=== PATIENT | female | born 1975 | race Caucasian/White ===

== ENCOUNTER 2018-03-30 13:12 | Emergency (ER) | payer OTHER | END 2018-03-30 14:16 | disposition home or self-care (01) | LOC: E/R 13:12 | DX: E13.621 Other specified diabetes mellitus with foot ulcer (principal); L97.419 Non-pressure chronic ulcer of right heel and midfoot with unspecified severity; M79.671 Pain in right foot | CPT/HCPCS: 99284; Z7502 ==

== ENCOUNTER 2019-02-11 00:55 | Inpatient (IN) | payer OTHER ==
[2019-02-11] MEDS: ASPIRIN 81 MG TAB PO (01:21)
[2019-02-11] MEDS: ENALAPRILAT 1.25 MG INJ IV (01:21)
[2019-02-11] MEDS: FUROSEMIDE 40 MG INJ IV ×3 (01:22→22:10)
[2019-02-11 01:23] LABS: ADD MAN DIFF? NO
[2019-02-11 01:26] LABS: BASOPHIL # 0.1 10^3/ul (0.0-0.1); BASOPHILS % 0.6 % (0.0-2.0); EOSINOPHILS # 0.3 10^3/ul (0.0-0.5); EOSINOPHILS % 2.3 % (0.0-7.0); HEMATOCRIT 36.1 % (37.0-47.0); HEMOGLOBIN 11.2 g/dl (12.0-16.0); LYMPHOCYTES # 1.6 10^3/ul (0.8-2.9); LYMPHOCYTES % 13.1 % (15.0-51.0); MEAN CORPUSCULAR HEMOGLOBIN 23.5 pg (29.0-33.0); MEAN CORPUSCULAR VOLUME 75.7 fl (82.0-101.0); MEAN PLATELET VOLUME 10.5 fl (7.4-10.4); MONOCYTE # 0.4 10^3/ul (0.3-0.9); MONOCYTES % 3.6 % (0.0-11.0); NEUTROPHIL # 9.6 10^3/ul (1.6-7.5); NEUTROPHILS % 79.9 % (39.0-77.0); PLATELET COUNT 361 10^3/UL (140-415); RED BLOOD COUNT 4.77 10^6/ul (4.20-5.40); RED CELL DISTRIBUTION WIDTH 19.8 % (11.5-14.5)
[2019-02-11 01:53] LABS: ALANINE AMINOTRANSFERASE 12 IU/L (13-69); ALBUMIN 3.6 g/dl (3.3-4.9); ALKALINE PHOSPHATASE 120 IU/L (42-121); ANION GAP 12 (5-13); ASPARTATE AMINO TRANSFERASE 20 IU/L (15-46); BILIRUBIN,INDIRECT 0.2 mg/dl (0-1.1); BILIRUBIN,TOTAL 0.2 mg/dl (0.2-1.3); BLOOD UREA NITROGEN 58 mg/dl (7-20); CALCIUM 8.3 mg/dl (8.4-10.2); CARBON DIOXIDE 17 mmol/L (21-31); CHLORIDE 114 mmol/L (97-110); Estimated GFR 8 mL/min (>60); GLUCOSE 276 mg/dl (70-220); LIPASE 213 U/L (23-300); POTASSIUM 5.2 mmol/L (3.5-5.1); SODIUM 143 mmol/L (135-144); TOTAL PROTEIN 7.6 g/dl (6.1-8.1)
[2019-02-11 02:05] LABS: TROPONIN-I 0.055 ng/ml (0.000-0.120)
[2019-02-11] MEDS: ALBUTEROL 0.5% (NEB) 2.5 MG/0.5 ML AMP INH (02:08)
[2019-02-11 02:19] LABS: B-TYPE NATRIURETIC PEPTIDE 74800 PG/ML (0-125)
[2019-02-11 03:14] LABS: ADD UMIC YES; UR ASCORBIC ACID NEGATIVE (NEGATIVE); UR BILIRUBIN (Dip) NEGATIVE (NEGATIVE); UR BLOOD (Dip) 1+ mg/dL (NEGATIVE); UR CLARITY SLIGHTLY CLOUDY (CLEAR); UR COLOR STRAW (YELLOW); UR GLUCOSE (Dip) 3+ mg/dL (NEGATIVE); UR KETONES (Dip) NEGATIVE (NEGATIVE); UR LEUKOCYTE ESTERASE (Dip) 1+ Leu/ul (NEGATIVE); UR NITRITE (Dip) NEGATIVE (NEGATIVE); UR RBC 2 /HPF (0-5); UR SPECIFIC GRAVITY (Dip) 1.009 (1.003-1.030); UR TOTAL PROTEIN (Dip) 3+ mg/dl (NEGATIVE); UR UROBILINOGEN (Dip) NEGATIVE (NEGATIVE); UR WBC 152 /HPF (0-5)
[2019-02-11 04:19] LABS: PARTIAL THROMBOPLASTIN TIME 32.6 Sec (23.0-35.0)
[2019-02-11 04:40] LABS: INR 0.99; PROTIME 13.2 Sec (11.9-14.9)
[2019-02-11] MEDS: CEFTRIAXONE 1 GM/50 ML (PMX) 50 ML IVPB (05:46)
[2019-02-11] MEDS: CITRIC ACID/NA CITRATE 30 ML CUP PO ×3 (09:20→22:12)
[2019-02-11] MEDS: AMLODIPINE 5 MG TAB PO (10:22)
[2019-02-11] MEDS: METOPROLOL 50 MG TAB PO ×2 (10:23→22:11)
[2019-02-11] MEDS ORDERED: DEXTROSE 50% 50 ML SYRINGE IV ×2 (10:30)
[2019-02-11] MEDS ORDERED: GLUCAGON 1 MG INJ IM (10:30)
[2019-02-11] MEDS ORDERED: GLUCOSE GEL 15 GRAM TUBE PO ×2 (10:30)
[2019-02-11] MEDS ORDERED: GLUCOSE GEL 15 GRAM TUBE BUCCAL (10:30)
[2019-02-11] MEDS: INSULIN ASPART [NOVOLOG] 3 ML PEN SC ×3 (11:49→20:41)
[2019-02-11] MEDS ORDERED: GLIMEPIRIDE 4 MG TAB PO (11:50)
[2019-02-11 13:26] LABS: SODIUM,URINE RANDOM 113 mmol/L (30-90)
[2019-02-11 13:52] LABS: CREATININE,URINE RANDOM 25.68 mg/dl (20-320)
[2019-02-11] MEDS: ATORVASTATIN 10 MG TAB PO (22:11)
[2019-02-12 07:30] LABS: CREATINE KINASE 198 IU/L (23-200)
[2019-02-12 07:30] LABS: URIC ACID 7.6 mg/dl (3.1-7.9)
[2019-02-12] MEDS: INSULIN ASPART [NOVOLOG] 3 ML PEN SC ×2 (07:43→11:46)
[2019-02-12] MEDS: CITRIC ACID/NA CITRATE 30 ML CUP PO ×2 (08:04→12:30)
[2019-02-12] MEDS: AMLODIPINE 5 MG TAB PO (08:05)
[2019-02-12] MEDS: FUROSEMIDE 40 MG INJ IV (08:05)
[2019-02-12] MEDS: METOPROLOL 50 MG TAB PO (08:07)
[2019-02-12] MEDS ORDERED: NIFEdipine (XL) 30 MG TAB PO (09:00)
[2019-02-12 10:48] LABS: IRON 15 ug/dl (35-150)
[2019-02-12 10:54] LABS: ALANINE AMINOTRANSFERASE 13 IU/L (13-69); ALBUMIN 2.8 g/dl (3.3-4.9); ALKALINE PHOSPHATASE 75 IU/L (42-121); ANION GAP 11 (5-13); ASPARTATE AMINO TRANSFERASE 16 IU/L (15-46); BILIRUBIN,INDIRECT 0.2 mg/dl (0-1.1); BILIRUBIN,TOTAL 0.2 mg/dl (0.2-1.3); BLOOD UREA NITROGEN 60 mg/dl (7-20); CALCIUM 7.8 mg/dl (8.4-10.2); CARBON DIOXIDE 20 mmol/L (21-31); CHLORIDE 111 mmol/L (97-110); CREATININE 5.97 mg/dl (0.44-1.00); Estimated GFR 8 mL/min (>60); GLUCOSE 135 mg/dl (70-220); POTASSIUM 4.9 mmol/L (3.5-5.1); SODIUM 142 mmol/L (135-144); TOTAL PROTEIN 6.3 g/dl (6.1-8.1)
[2019-02-12 10:58] LABS: % IRON SATURATION 5 % SAT (22-52); TOTAL IRON BINDING CAPACITY 303 ug/dl (241-421)
[2019-02-12 13:45] LABS: PARATHYROID HORMONE INTACT 425.3 pg/ml (7.5-53.5)
[2019-02-13] MEDS ORDERED: AMLODIPINE 10 MG TAB PO (09:00)
== END 2019-02-12 15:02 | disposition home or self-care (01) | DRG 291 ==
LOC: E/R 00:55 → TEL 02:32
DX: I13.0 Hypertensive heart and chronic kidney disease with heart failure and stage 1 through stage 4 chronic kidney disease, or unspecified chronic kidney disease (principal); N17.0 Acute kidney failure with tubular necrosis; I50.30 Unspecified diastolic (congestive) heart failure; N18.4 Chronic kidney disease, stage 4 (severe); I16.1 Hypertensive emergency; E87.2 Acidosis; E87.5 Hyperkalemia; E11.21 Type 2 diabetes mellitus with diabetic nephropathy; Z91.19 Patient's noncompliance with other medical treatment and regimen; E11.65 Type 2 diabetes mellitus with hyperglycemia
CPT/HCPCS: 36415; 71045; 76775; 80053; 81001; 81003; 82306; 82550; 82570; 82728; 82962; 83540; 83690; 83880; 83970; 84300; 84484; 84560; 85025; 85610; 85730; 89190; 93005; 93306; 94644; 94660; 96374; 96375; 99285-25

== ENCOUNTER 2019-02-15 07:26 | Observation (INO) | payer OTHER ==
[2019-02-15 08:43] LABS: ADD MAN DIFF? NO
[2019-02-15 08:49] LABS: ABNORMAL IP MESSAGE 1; BASOPHILS % 0.4 % (0.0-2.0); EOSINOPHILS # 0.1 10^3/ul (0.0-0.5); EOSINOPHILS % 1.7 % (0.0-7.0); HEMATOCRIT 32.3 % (37.0-47.0); HEMOGLOBIN 9.9 g/dl (12.0-16.0); LYMPHOCYTES # 0.6 10^3/ul (0.8-2.9); LYMPHOCYTES % 7.1 % (15.0-51.0); MEAN CORPUSCULAR HEMOGLOBIN 23.4 pg (29.0-33.0); MEAN CORPUSCULAR HGB CONC 30.7 g/dl (32.0-37.0); MEAN CORPUSCULAR VOLUME 76.4 fl (82.0-101.0); MONOCYTE # 0.5 10^3/ul (0.3-0.9); MONOCYTES % 5.4 % (0.0-11.0); NEUTROPHIL # 7.1 10^3/ul (1.6-7.5); PLATELET COUNT 362 10^3/UL (140-415); RED BLOOD COUNT 4.23 10^6/ul (4.20-5.40)
[2019-02-15 08:49] LABS: WHITE BLOOD COUNT 8.3 10^3/ul (4.8-10.8)
[2019-02-15 08:50] LABS: POSITIVE DIFF @See below
[2019-02-15] MEDS: OCTREOTIDE 50 MCG INJ SC (08:51)
[2019-02-15 09:21] LABS: ANION GAP 13 (5-13); BLOOD UREA NITROGEN 61 mg/dl (7-20); CALCIUM 7.1 mg/dl (8.4-10.2); CARBON DIOXIDE 21 mmol/L (21-31); CHLORIDE 107 mmol/L (97-110); CREATININE 5.89 mg/dl (0.44-1.00); Estimated GFR 8 mL/min (>60); POTASSIUM 4.2 mmol/L (3.5-5.1); SODIUM 141 mmol/L (135-144)
[2019-02-15 09:28] LABS: GLUCOSE 47 mg/dl (70-220)
[2019-02-15 09:32] LABS: TROPONIN-I 0.053 ng/ml (0.000-0.120)
[2019-02-15] MEDS: DEXTROSE 50% 50 ML SYRINGE IV (09:55)
[2019-02-15] MEDS: DEXTROSE 5%-0.9% NACL 1,000 ML IV (09:56)
[2019-02-15] MEDS ORDERED: ACETAMINOPHEN 325 MG TAB PO (12:30)
[2019-02-15] MEDS ORDERED: ONDANSETRON 4 MG INJ IV (12:30)
[2019-02-15] MEDS ORDERED: CITRIC ACID/NA CIT (1 MEQ/ML POSYG) PO (13:00)
[2019-02-15] MEDS: FUROSEMIDE 40 MG TAB PO ×2 (13:55→18:41)
[2019-02-15] MEDS: METOPROLOL 50 MG TAB PO (13:55)
[2019-02-15] MEDS ORDERED: DEXTROSE 50% 50 ML SYRINGE IV ×2 (14:30)
[2019-02-15] MEDS ORDERED: GLUCOSE GEL 15 GRAM TUBE PO ×2 (14:30)
[2019-02-15] MEDS ORDERED: GLUCAGON 1 MG INJ IM (14:30)
[2019-02-15] MEDS: DEXTROSE 5%-0.45% NACL 1,000 ML IV (14:30)
[2019-02-15] MEDS ORDERED: GLUCOSE GEL 15 GRAM TUBE BUCCAL (14:30)
[2019-02-15] MEDS: CITRIC ACID/NA CITRATE 30 ML CUP PO (16:14)
[2019-02-15] MEDS ORDERED: INSULIN ASPART [NOVOLOG] 3 ML PEN SC (18:00)
[2019-02-15] MEDS ORDERED: AMLODIPINE 5 MG TAB PO (21:00)
[2019-02-15] MEDS ORDERED: ATORVASTATIN 20 MG TAB PO (21:00)
== END 2019-02-15 21:05 | disposition left against medical advice (07) ==
LOC: E/R 07:26 → 6WM 12:46
PROVIDERS: Internal Medicine
DX: E11.649 Type 2 diabetes mellitus with hypoglycemia without coma (principal); Z79.4 Long term (current) use of insulin; I13.0 Hypertensive heart and chronic kidney disease with heart failure and stage 1 through stage 4 chronic kidney disease, or unspecified chronic kidney disease; E11.22 Type 2 diabetes mellitus with diabetic chronic kidney disease; N18.4 Chronic kidney disease, stage 4 (severe); I50.9 Heart failure, unspecified
CPT/HCPCS: 36415; 71045; 80048; 82962; 84484; 85025; 93005; 96372; 96374; 99217; 99285-25

== ENCOUNTER 2019-03-05 03:13 | Emergency (ER) | payer OTHER | END 2019-03-05 06:03 | disposition home or self-care (01) | LOC: E/R 03:13 | DX: E11.649 Type 2 diabetes mellitus with hypoglycemia without coma (principal); I10 Essential (primary) hypertension; Z79.4 Long term (current) use of insulin | CPT/HCPCS: 82962; 99282 ==

== ENCOUNTER 2019-03-22 00:34 | Inpatient (IN) | payer OTHER ==
[2019-03-22] MEDS ORDERED: NITROGLYCERIN 50 MG/D5W (PMX) 250 ML (00:49)
[2019-03-22] MEDS ORDERED: NITROGLYCERIN (SL) 0.4 MG TAB (00:50)
[2019-03-22 00:58] LABS: ADD MAN DIFF? NO
[2019-03-22] MEDS: NITROGLYCERIN (SL) 0.4 MG TAB SL (00:58)
[2019-03-22] MEDS: NITROGLYCERIN 50 MG/D5W (PMX) 250 ML IV (01:00)
[2019-03-22] MEDS: morphine 4 MG/ML VIAL IV (01:02)
[2019-03-22 01:04] LABS: ABNORMAL IP MESSAGE 1; BASOPHILS % 0.4 % (0.0-2.0); EOSINOPHILS # 0.3 10^3/ul (0.0-0.5); EOSINOPHILS % 2.7 % (0.0-7.0); HEMATOCRIT 30.3 % (37.0-47.0); HEMOGLOBIN 8.6 g/dl (12.0-16.0); LYMPHOCYTES # 0.8 10^3/ul (0.8-2.9); LYMPHOCYTES % 8.7 % (15.0-51.0); MEAN CORPUSCULAR HEMOGLOBIN 23.1 pg (29.0-33.0); MEAN CORPUSCULAR HGB CONC 28.4 g/dl (32.0-37.0); MEAN CORPUSCULAR VOLUME 81.5 fl (82.0-101.0); MONOCYTE # 0.6 10^3/ul (0.3-0.9); MONOCYTES % 6.4 % (0.0-11.0); NEUTROPHIL # 7.8 10^3/ul (1.6-7.5); NEUTROPHILS % 81.4 % (39.0-77.0); NUCLEATED RED BLOOD CELLS% 0.3 /100WBC (0.0-0.0); PLATELET COUNT 418 10^3/UL (140-415); RED BLOOD COUNT 3.72 10^6/ul (4.20-5.40); RED CELL DISTRIBUTION WIDTH 17.6 % (11.5-14.5)
[2019-03-22 01:04] LABS: WHITE BLOOD COUNT 9.6 10^3/ul (4.8-10.8)
[2019-03-22 01:18] LABS: POSITIVE DIFF @See below
[2019-03-22 01:21] LABS: ALANINE AMINOTRANSFERASE 19 IU/L (13-69); ALBUMIN 3.3 g/dl (3.3-4.9); ALBUMIN/GLOBULIN RATIO 0.84; ALKALINE PHOSPHATASE 102 IU/L (42-121); ANION GAP 9 (5-13); ASPARTATE AMINO TRANSFERASE 20 IU/L (15-46); BILIRUBIN,INDIRECT 0.2 mg/dl (0-1.1); BILIRUBIN,TOTAL 0.2 mg/dl (0.2-1.3); BLOOD UREA NITROGEN 68 mg/dl (7-20); CALCIUM 7.8 mg/dl (8.4-10.2); CARBON DIOXIDE 24 mmol/L (21-31); CHLORIDE 108 mmol/L (97-110); CREATININE 6.47 mg/dl (0.44-1.00); Estimated GFR 7 mL/min (>60); GLUCOSE 88 mg/dl (70-220); LIPASE 176 U/L (23-300); POTASSIUM 5.3 mmol/L (3.5-5.1); SODIUM 141 mmol/L (135-144); TOTAL PROTEIN 7.2 g/dl (6.1-8.1)
[2019-03-22 01:23] LABS: INR 1.07; PT RATIO 1.1
[2019-03-22 01:24] LABS: PARTIAL THROMBOPLASTIN TIME 32.1 Sec (23.0-35.0)
[2019-03-22 01:32] LABS: TROPONIN-I 0.044 ng/ml (0.000-0.120)
[2019-03-22 02:15] LABS: AADO2 Arterial 597.6 mmHg (7.0-24.0); Arterial Base Excess -3.6 mmol/L (-3.0-3); Arterial Blood Gas Oxygen Sat 92.5 mmHG (95.0-98.0); Arterial COHb 0.1 % (0.0-3.0); Arterial Fraction of Oxyhgb 91.9 % (93.0-99.0); Arterial HCO3 22.4 mmol/L (22.0-26.0); Arterial MetHb 0.5 % (0.0-1.5); Arterial pCO2 44.6 mmhg (35-45); Blood Gas IEPAP 15/5; Blood Gas PS 10; MODE MASK - BIPAP; Site Right Brachial
[2019-03-22 02:38] LABS: B-TYPE NATRIURETIC PEPTIDE 75300 PG/ML (0-125)
[2019-03-22] MEDS: LABETALOL HCL 20MG INJ IV (03:29)
[2019-03-22] MEDS: FUROSEMIDE 40 MG INJ IV ×2 (05:10→08:30)
[2019-03-22] MEDS ORDERED: ACETAMINOPHEN 325 MG TAB PO (06:00)
[2019-03-22] MEDS ORDERED: ONDANSETRON 4 MG INJ IV ×2 (06:00→08:30)
[2019-03-22 07:17] LABS: ADD MAN DIFF? NO
[2019-03-22 07:20] LABS: WHITE BLOOD COUNT 8.5 10^3/ul (4.8-10.8)
[2019-03-22 07:20] LABS: ABNORMAL IP MESSAGE 1; BASOPHIL # 0.1 10^3/ul (0.0-0.1); BASOPHILS % 0.6 % (0.0-2.0); EOSINOPHILS # 0.1 10^3/ul (0.0-0.5); EOSINOPHILS % 1.4 % (0.0-7.0); HEMATOCRIT 27.8 % (37.0-47.0); HEMOGLOBIN 7.9 g/dl (12.0-16.0); LYMPHOCYTES # 0.7 10^3/ul (0.8-2.9); MEAN CORPUSCULAR HEMOGLOBIN 22.9 pg (29.0-33.0); MEAN CORPUSCULAR HGB CONC 28.4 g/dl (32.0-37.0); MEAN CORPUSCULAR VOLUME 80.6 fl (82.0-101.0); MEAN PLATELET VOLUME 9.5 fl (7.4-10.4); MONOCYTE # 0.6 10^3/ul (0.3-0.9); MONOCYTES % 6.9 % (0.0-11.0); NEUTROPHILS % 82.6 % (39.0-77.0); NUCLEATED RED BLOOD CELLS% 0.2 /100WBC (0.0-0.0); PLATELET COUNT 352 10^3/UL (140-415); RED BLOOD COUNT 3.45 10^6/ul (4.20-5.40); RED CELL DISTRIBUTION WIDTH 17.7 % (11.5-14.5)
[2019-03-22 07:38] LABS: POSITIVE DIFF @See below
[2019-03-22 07:46] LABS: ALBUMIN/GLOBULIN RATIO 0.86; ANION GAP 8 (5-13); BILIRUBIN,TOTAL 0.2 mg/dl (0.2-1.3); BLOOD UREA NITROGEN 68 mg/dl (7-20); CARBON DIOXIDE 24 mmol/L (21-31); CHLORIDE 109 mmol/L (97-110); CREATININE 6.78 mg/dl (0.44-1.00); Estimated GFR 7 mL/min (>60); GLUCOSE 80 mg/dl (70-220); POTASSIUM 5.6 mmol/L (3.5-5.1); SODIUM 141 mmol/L (135-144)
[2019-03-22 07:47] LABS: ALANINE AMINOTRANSFERASE 18 IU/L (13-69); ALBUMIN 3.1 g/dl (3.3-4.9); ALKALINE PHOSPHATASE 86 IU/L (42-121); ASPARTATE AMINO TRANSFERASE 18 IU/L (15-46); BILIRUBIN,INDIRECT 0.2 mg/dl (0-1.1); CALCIUM 7.6 mg/dl (8.4-10.2); TOTAL PROTEIN 6.7 g/dl (6.1-8.1)
[2019-03-22 08:14] LABS: B-TYPE NATRIURETIC PEPTIDE 77800 PG/ML (0-125)
[2019-03-22 08:34] LABS: TROPONIN-I 0.057 ng/ml (0.000-0.120)
[2019-03-22] MEDS ORDERED: EMPAGLIFLOZIN 12.5 MG PO (10:00)
[2019-03-22] MEDS ORDERED: ZOLPIDEM 5 MG TAB PO (10:00)
[2019-03-22] MEDS: METOPROLOL 50 MG TAB PO (10:11)
[2019-03-22] MEDS: NA POLYST SULFON 15 GM/60 ML BTL PO (10:11)
[2019-03-22] MEDS: AMLODIPINE 5 MG TAB PO (10:12)
[2019-03-22] MEDS ORDERED: DEXTROSE 50% 50 ML SYRINGE IV (10:30)
[2019-03-22] MEDS ORDERED: GLUCOSE GEL 15 GRAM TUBE PO ×2 (10:30)
[2019-03-22] MEDS ORDERED: GLUCOSE GEL 15 GRAM TUBE BUCCAL (10:30)
[2019-03-22] MEDS ORDERED: GLUCAGON 1 MG INJ IM (10:30)
[2019-03-22] MEDS: BUMETANIDE 6 MG in DEXTROSE 5% 36 ML IV ×2 (11:19→18:26)
[2019-03-22] MEDS ORDERED: NON-FORMULARY/PATIENT OWN MED (Insulin Lispro (Humalog Kwikpen U-100) 8 UNIT) SQ (11:30)
[2019-03-22] MEDS: NIFEdipine (XL) 60 MG TAB PO (13:21)
[2019-03-22] MEDS: hydrALAzine 20 MG INJ IV (16:38)
[2019-03-22] MEDS: INSULIN ASPART [NOVOLOG] 3 ML PEN SC ×3 (16:50→21:00)
[2019-03-22] MEDS ORDERED: LORAZEPAM 1 MG TAB PO (17:30)
[2019-03-22] MEDS ORDERED: INSULIN GLARGINE [LANTus] (100 UNITS/ML) SYG SC (21:00)
[2019-03-22] MEDS: INSULIN GLARGINE [LANTus] (100 UNITS/ML) SYG SC (21:00)
[2019-03-22] MEDS: ACETAMINOPHEN 500 MG TAB PO (21:11)
[2019-03-22] MEDS: ATORVASTATIN 20 MG TAB PO (21:12)
[2019-03-23] MEDS: BUMETANIDE 12 MG in DEXTROSE 5% 72 ML IV ×2 (00:48→13:51)
[2019-03-23 00:57] LABS: AADO2 Arterial 180.2 mmHg (7.0-24.0); Allen Test ACCEPTAB; Arterial Base Excess -6.9 mmol/L (-3.0-3); Arterial Blood Gas Oxygen Sat 90.8 mmHG (95.0-98.0); Arterial COHb 0.1 % (0.0-3.0); Arterial Fraction of Oxyhgb 90.3 % (93.0-99.0); Arterial HCO3 18.6 mmol/L (22.0-26.0); Arterial MetHb 0.5 % (0.0-1.5); Arterial pCO2 37.1 mmhg (35-45); Blood Gas IEPAP 15/5; Blood Gas PS 10; MODE MASK - BIPAP; Site Left Radial
[2019-03-23] MEDS: ACCU-CHEK XX (02:00)
[2019-03-23 06:21] LABS: ADD MAN DIFF? NO
[2019-03-23 06:28] LABS: WHITE BLOOD COUNT 5.5 10^3/ul (4.8-10.8)
[2019-03-23 06:28] LABS: ABNORMAL IP MESSAGE 1; BASOPHILS % 0.4 % (0.0-2.0); EOSINOPHILS % 0.2 % (0.0-7.0); HEMATOCRIT 26.9 % (37.0-47.0); HEMOGLOBIN 7.6 g/dl (12.0-16.0); LYMPHOCYTES # 0.7 10^3/ul (0.8-2.9); LYMPHOCYTES % 11.8 % (15.0-51.0); MEAN CORPUSCULAR HGB CONC 28.3 g/dl (32.0-37.0); MEAN CORPUSCULAR VOLUME 81.3 fl (82.0-101.0); MONOCYTE # 0.4 10^3/ul (0.3-0.9); MONOCYTES % 6.6 % (0.0-11.0); NEUTROPHIL # 4.4 10^3/ul (1.6-7.5); NEUTROPHILS % 80.6 % (39.0-77.0); NUCLEATED RED BLOOD CELLS% 0.5 /100WBC (0.0-0.0); PLATELET COUNT 329 10^3/UL (140-415); RED BLOOD COUNT 3.31 10^6/ul (4.20-5.40); RED CELL DISTRIBUTION WIDTH 17.4 % (11.5-14.5)
[2019-03-23 06:46] LABS: POSITIVE DIFF @See below
[2019-03-23 06:47] LABS: CHOL/HDL RATIO 1.8 RATIO; HDL CHOLESTEROL 48 mg/dl (34-88); LDL CHOLESTEROL,CALCULATED 29 mg/dl; TRIGLYCERIDES 61 mg/dl (0-149)
[2019-03-23 06:47] LABS: CHOLESTEROL 89 mg/dl (100-200)
[2019-03-23 06:54] LABS: HEMOGLOBIN A1C 7.7 % (0-5.9)
[2019-03-23 07:09] LABS: ANION GAP 8 (5-13); BLOOD UREA NITROGEN 76 mg/dl (7-20); CALCIUM 7.3 mg/dl (8.4-10.2); CARBON DIOXIDE 22 mmol/L (21-31); CHLORIDE 108 mmol/L (97-110); CREATININE 6.98 mg/dl (0.44-1.00); Estimated GFR 6 mL/min (>60); GLUCOSE 92 mg/dl (70-220); POTASSIUM 5.6 mmol/L (3.5-5.1); SODIUM 138 mmol/L (135-144)
[2019-03-23] MEDS: INSULIN ASPART [NOVOLOG] 3 ML PEN SC ×4 (07:35→21:00)
[2019-03-23] MEDS: NIFEdipine (XL) 60 MG TAB PO (08:09)
[2019-03-23] MEDS ORDERED: HEPARIN 1000 UNITS/ML 10 ML INJ CATHETER (12:00)
[2019-03-23] MEDS ORDERED: SODIUM CHLORIDE 0.9% 1L BAG IV (12:00)
[2019-03-23] MEDS: ATORVASTATIN 20 MG TAB PO (21:57)
[2019-03-23] MEDS: INSULIN GLARGINE [LANTus] (100 UNITS/ML) SYG SC (22:06)
[2019-03-24] MEDS: HEPARIN 1000 UNITS/ML 10 ML INJ HE (01:49)
[2019-03-24] MEDS: ACCU-CHEK XX (01:57)
[2019-03-24] MEDS: BUMETANIDE 12 MG in DEXTROSE 5% 72 ML IV (02:13)
[2019-03-24] MEDS: morphine 2 MG INJ IV (03:48)
[2019-03-24 06:15] LABS: HAAIG REFLEX REFLEX FILED
[2019-03-24 07:14] LABS: HEPATITIS B SURFACE ANTIGEN NEGATIVE (NEGATIVE)
[2019-03-24 07:32] LABS: HEPATITIS B CORE ANTIBODY NEGATIVE (NEGATIVE); HEPATITIS C VIRAL ANTIBODY NEGATIVE (NEGATIVE); HIV 1&2 ANTIBODY NEGATIVE (NEGATIVE)
[2019-03-24] MEDS: INSULIN ASPART [NOVOLOG] 3 ML PEN SC ×4 (09:27→21:00)
[2019-03-24] MEDS: NIFEdipine (XL) 60 MG TAB PO (09:36)
[2019-03-24] MEDS: ALTEPLASE (CATHFLO) 2 MG INJ CATHETER (15:35)
[2019-03-24] MEDS: ATORVASTATIN 20 MG TAB PO (21:19)
[2019-03-24] MEDS: INSULIN GLARGINE [LANTus] (100 UNITS/ML) SYG SC (21:27)
[2019-03-25] MEDS: ACCU-CHEK XX (02:26)
[2019-03-25 06:23] LABS: ADD MAN DIFF? NO
[2019-03-25 06:33] LABS: WHITE BLOOD COUNT 6.7 10^3/ul (4.8-10.8)
[2019-03-25 06:33] LABS: ABNORMAL IP MESSAGE 1; BASOPHILS % 0.6 % (0.0-2.0); EOSINOPHILS # 0.2 10^3/ul (0.0-0.5); EOSINOPHILS % 2.7 % (0.0-7.0); HEMATOCRIT 26.4 % (37.0-47.0); HEMOGLOBIN 7.6 g/dl (12.0-16.0); LYMPHOCYTES # 0.6 10^3/ul (0.8-2.9); LYMPHOCYTES % 8.3 % (15.0-51.0); MEAN CORPUSCULAR HEMOGLOBIN 22.8 pg (29.0-33.0); MEAN CORPUSCULAR HGB CONC 28.8 g/dl (32.0-37.0); MEAN CORPUSCULAR VOLUME 79.3 fl (82.0-101.0); MEAN PLATELET VOLUME 10.4 fl (7.4-10.4); MONOCYTE # 0.6 10^3/ul (0.3-0.9); MONOCYTES % 8.2 % (0.0-11.0); NEUTROPHIL # 5.4 10^3/ul (1.6-7.5); NEUTROPHILS % 79.8 % (39.0-77.0); NUCLEATED RED BLOOD CELLS # 0.1 10^3/ul (0.0-0.0); NUCLEATED RED BLOOD CELLS% 1.3 /100WBC (0.0-0.0); PLATELET COUNT 334 10^3/UL (140-415); RED BLOOD COUNT 3.33 10^6/ul (4.20-5.40); RED CELL DISTRIBUTION WIDTH 17.3 % (11.5-14.5)
[2019-03-25 06:43] LABS: POSITIVE DIFF @See below
[2019-03-25 07:00] LABS: MAGNESIUM 2.1 mg/dl (1.7-2.5)
[2019-03-25 07:18] LABS: ANION GAP 12 (5-13); BLOOD UREA NITROGEN 68 mg/dl (7-20); CALCIUM 7.4 mg/dl (8.4-10.2); CARBON DIOXIDE 22 mmol/L (21-31); CHLORIDE 105 mmol/L (97-110); CREATININE 6.99 mg/dl (0.44-1.00); Estimated GFR 6 mL/min (>60); GLUCOSE 60 mg/dl (70-220); POTASSIUM 5.2 mmol/L (3.5-5.1); SODIUM 139 mmol/L (135-144)
[2019-03-25] MEDS: INSULIN ASPART [NOVOLOG] 3 ML PEN SC ×4 (07:55→21:00)
[2019-03-25] MEDS: NIFEdipine (XL) 30 MG TAB PO (09:00)
[2019-03-25 13:50] LABS: GLUCOSE 123 mg/dl (70-220)
[2019-03-25] MEDS: ALBUMIN HUMAN 25% 100 ML IV (16:25)
[2019-03-25] MEDS: HEPARIN 1000 UNITS/ML 10 ML INJ CATHETER (19:42)
[2019-03-25] MEDS: ATORVASTATIN 20 MG TAB PO (21:42)
[2019-03-25] MEDS: HEPARIN 5,000 UNIT/1 ML VIAL SC (21:52)
[2019-03-25] MEDS: INSULIN GLARGINE [LANTus] (100 UNITS/ML) SYG SC (21:53)
[2019-03-26] MEDS: ACCU-CHEK XX (01:40)
[2019-03-26 07:23] LABS: ADD MAN DIFF? NO
[2019-03-26 07:30] LABS: WHITE BLOOD COUNT 6.4 10^3/ul (4.8-10.8)
[2019-03-26 07:30] LABS: ABNORMAL IP MESSAGE 1; BASOPHILS % 0.5 % (0.0-2.0); EOSINOPHILS # 0.2 10^3/ul (0.0-0.5); EOSINOPHILS % 2.8 % (0.0-7.0); HEMOGLOBIN 7.5 g/dl (12.0-16.0); LYMPHOCYTES # 0.6 10^3/ul (0.8-2.9); LYMPHOCYTES % 8.7 % (15.0-51.0); MEAN CORPUSCULAR HEMOGLOBIN 22.5 pg (29.0-33.0); MEAN CORPUSCULAR HGB CONC 28.8 g/dl (32.0-37.0); MEAN CORPUSCULAR VOLUME 78.1 fl (82.0-101.0); MEAN PLATELET VOLUME 10.2 fl (7.4-10.4); MONOCYTE # 0.6 10^3/ul (0.3-0.9); NEUTROPHILS % 78.4 % (39.0-77.0); NUCLEATED RED BLOOD CELLS # 0.1 10^3/ul (0.0-0.0); NUCLEATED RED BLOOD CELLS% 1.3 /100WBC (0.0-0.0); PLATELET COUNT 310 10^3/UL (140-415); RED BLOOD COUNT 3.33 10^6/ul (4.20-5.40); RED CELL DISTRIBUTION WIDTH 17.2 % (11.5-14.5)
[2019-03-26 07:37] LABS: POSITIVE DIFF @See below
[2019-03-26] MEDS: INSULIN ASPART [NOVOLOG] 3 ML PEN SC ×5 (07:55→20:43)
[2019-03-26 07:57] LABS: ANION GAP 9 (5-13); BLOOD UREA NITROGEN 54 mg/dl (7-20); CALCIUM 7.5 mg/dl (8.4-10.2); CARBON DIOXIDE 26 mmol/L (21-31); CHLORIDE 103 mmol/L (97-110); CREATININE 5.51 mg/dl (0.44-1.00); Estimated GFR 8 mL/min (>60); POTASSIUM 4.5 mmol/L (3.5-5.1); SODIUM 138 mmol/L (135-144)
[2019-03-26 08:03] LABS: GLUCOSE 44 mg/dl (70-220)
[2019-03-26] MEDS: DEXTROSE 50% 50 ML SYRINGE IV ×2 (08:08→12:05)
[2019-03-26 08:14] LABS: PHOSPHORUS 7.8 mg/dl (2.5-4.9)
[2019-03-26 08:15] LABS: IRON < 10 ug/dl (35-150)
[2019-03-26] MEDS: HEPARIN 5,000 UNIT/1 ML VIAL SC ×2 (08:19→20:54)
[2019-03-26 08:25] LABS: TOTAL IRON BINDING CAPACITY 293 ug/dl (241-421)
[2019-03-26 09:21] LABS: FOLATE 9.2 ng/ml (2.8-20.0)
[2019-03-26] MEDS: REGADENOSON 0.4 MG/5 ML SYG (14:32)
[2019-03-26] MEDS: DEXTROSE 5%-0.9% NACL 1,000 ML IV (15:43)
[2019-03-26] MEDS: SOD FERRIC GLUC COMPLX 125 MG in SOD CHLORIDE 0.9% 100 ML IVPB (15:43)
[2019-03-26] MEDS: ATORVASTATIN 20 MG TAB PO (20:40)
[2019-03-26] MEDS: INSULIN GLARGINE [LANTus] (100 UNITS/ML) SYG SC (21:00)
[2019-03-26] MEDS: ACETAMINOPHEN 500 MG TAB PO (23:34)
[2019-03-27] MEDS ORDERED: ACCU-CHEK XX (02:00)
[2019-03-27] MEDS: ACCU-CHEK XX (02:00)
[2019-03-27 07:06] LABS: ADD MAN DIFF? NO
[2019-03-27 07:11] LABS: ABNORMAL IP MESSAGE 1; BASOPHILS % 0.3 % (0.0-2.0); EOSINOPHILS # 0.2 10^3/ul (0.0-0.5); EOSINOPHILS % 2.8 % (0.0-7.0); HEMATOCRIT 26.8 % (37.0-47.0); HEMOGLOBIN 7.6 g/dl (12.0-16.0); LYMPHOCYTES # 0.6 10^3/ul (0.8-2.9); LYMPHOCYTES % 9.2 % (15.0-51.0); MEAN CORPUSCULAR HEMOGLOBIN 22.6 pg (29.0-33.0); MEAN CORPUSCULAR HGB CONC 28.4 g/dl (32.0-37.0); MEAN CORPUSCULAR VOLUME 79.5 fl (82.0-101.0); MEAN PLATELET VOLUME 9.8 fl (7.4-10.4); MONOCYTE # 0.5 10^3/ul (0.3-0.9); MONOCYTES % 8.4 % (0.0-11.0); NEUTROPHIL # 5.1 10^3/ul (1.6-7.5); NEUTROPHILS % 78.5 % (39.0-77.0); NUCLEATED RED BLOOD CELLS # 0.2 10^3/ul (0.0-0.0); NUCLEATED RED BLOOD CELLS% 2.6 /100WBC (0.0-0.0); PLATELET COUNT 291 10^3/UL (140-415); RED BLOOD COUNT 3.37 10^6/ul (4.20-5.40); RED CELL DISTRIBUTION WIDTH 17.2 % (11.5-14.5)
[2019-03-27 07:11] LABS: WHITE BLOOD COUNT 6.4 10^3/ul (4.8-10.8)
[2019-03-27 07:19] LABS: POSITIVE DIFF @See below
[2019-03-27 07:30] LABS: INR 1.12; PARTIAL THROMBOPLASTIN TIME 34.6 Sec (23.0-35.0); PROTIME 14.5 Sec (11.9-14.9); PT RATIO 1.1
[2019-03-27 07:32] LABS: IRON 69 ug/dl (35-150)
[2019-03-27 07:33] LABS: ALANINE AMINOTRANSFERASE 22 IU/L (13-69); ALBUMIN/GLOBULIN RATIO 0.88; ALKALINE PHOSPHATASE 97 IU/L (42-121); ANION GAP 10 (5-13); ASPARTATE AMINO TRANSFERASE 25 IU/L (15-46); BILIRUBIN,INDIRECT 0.2 mg/dl (0-1.1); BILIRUBIN,TOTAL 0.2 mg/dl (0.2-1.3); BLOOD UREA NITROGEN 62 mg/dl (7-20); CALCIUM 7.4 mg/dl (8.4-10.2); CARBON DIOXIDE 25 mmol/L (21-31); CHLORIDE 104 mmol/L (97-110); CREATININE 6.26 mg/dl (0.44-1.00); Estimated GFR 7 mL/min (>60); GLUCOSE 99 mg/dl (70-220); POTASSIUM 4.7 mmol/L (3.5-5.1); SODIUM 139 mmol/L (135-144); TOTAL PROTEIN 6.4 g/dl (6.1-8.1)
[2019-03-27 07:41] LABS: % IRON SATURATION 22 % SAT (22-52); TOTAL IRON BINDING CAPACITY 311 ug/dl (241-421)
[2019-03-27] MEDS: INSULIN ASPART [NOVOLOG] 3 ML PEN SC ×4 (07:43→20:36)
[2019-03-27] MEDS ORDERED: LIDOCAINE 1% (MDV) 20 ML INJ ×2 (07:46→08:29)
[2019-03-27 07:57] LABS: MAGNESIUM 2.1 mg/dl (1.7-2.5)
[2019-03-27] MEDS ORDERED: FENTAnyl 50 MCG/ML VIAL (08:08)
[2019-03-27 08:12] LABS: PHOSPHORUS 8.2 mg/dl (2.5-4.9)
[2019-03-27] MEDS ORDERED: SOD CHLORIDE 0.9% 500 ML (08:29)
[2019-03-27] MEDS ORDERED: HEPARIN 1000 UNITS/ML 10 ML INJ (08:29)
[2019-03-27] MEDS ORDERED: CEFAZOLIN 1 GM/50 ML (PMX) 50 ML IVPB (08:29)
[2019-03-27 08:47] LABS: FERRITIN 48.2 ng/ml (6.2-137.0)
[2019-03-27] MEDS: HEPARIN 5,000 UNIT/1 ML VIAL SC ×2 (09:00→20:44)
[2019-03-27] MEDS: DEXTROSE 5%-0.9% NACL 1,000 ML IV (09:00)
[2019-03-27] MEDS: SOD FERRIC GLUC COMPLX 125 MG in SOD CHLORIDE 0.9% 100 ML IVPB (12:44)
[2019-03-27] MEDS: EPOETIN ALFA-EPBX (ESRD) 3,000 UNIT/ML VIAL SC (17:05)
[2019-03-27] MEDS: hydrALAzine 20 MG INJ IV (20:29)
[2019-03-27] MEDS: ATORVASTATIN 20 MG TAB PO (20:34)
[2019-03-27] MEDS: INSULIN GLARGINE [LANTus] (100 UNITS/ML) SYG SC (20:45)
[2019-03-27] MEDS: HEPARIN 1000 UNITS/ML 10 ML INJ CATHETER (21:57)
[2019-03-28] MEDS: ACCU-CHEK XX (02:00)
[2019-03-28] MEDS: DEXTROSE 5%-0.9% NACL 1,000 ML IV (04:43)
[2019-03-28 07:21] LABS: ADD MAN DIFF? NO
[2019-03-28 07:27] LABS: ABNORMAL IP MESSAGE 1; BASOPHILS % 0.5 % (0.0-2.0); EOSINOPHILS # 0.2 10^3/ul (0.0-0.5); EOSINOPHILS % 3.7 % (0.0-7.0); HEMATOCRIT 25.4 % (37.0-47.0); HEMOGLOBIN 7.2 g/dl (12.0-16.0); LYMPHOCYTES # 0.7 10^3/ul (0.8-2.9); MEAN CORPUSCULAR HEMOGLOBIN 22.5 pg (29.0-33.0); MEAN CORPUSCULAR HGB CONC 28.3 g/dl (32.0-37.0); MEAN CORPUSCULAR VOLUME 79.4 fl (82.0-101.0); MONOCYTE # 0.6 10^3/ul (0.3-0.9); NEUTROPHIL # 4.4 10^3/ul (1.6-7.5); NEUTROPHILS % 72.8 % (39.0-77.0); NUCLEATED RED BLOOD CELLS # 0.1 10^3/ul (0.0-0.0); NUCLEATED RED BLOOD CELLS% 1.5 /100WBC (0.0-0.0); PLATELET COUNT 282 10^3/UL (140-415); RED CELL DISTRIBUTION WIDTH 17.1 % (11.5-14.5)
[2019-03-28 07:36] LABS: POSITIVE DIFF @See below
[2019-03-28 07:47] LABS: ALANINE AMINOTRANSFERASE 25 IU/L (13-69); ALBUMIN/GLOBULIN RATIO 0.88; ALKALINE PHOSPHATASE 93 IU/L (42-121); ANION GAP 7 (5-13); ASPARTATE AMINO TRANSFERASE 19 IU/L (15-46); BILIRUBIN,INDIRECT 0.3 mg/dl (0-1.1); BILIRUBIN,TOTAL 0.3 mg/dl (0.2-1.3); BLOOD UREA NITROGEN 34 mg/dl (7-20); CALCIUM 7.8 mg/dl (8.4-10.2); CARBON DIOXIDE 30 mmol/L (21-31); CHLORIDE 102 mmol/L (97-110); CREATININE 4.07 mg/dl (0.44-1.00); Estimated GFR 12 mL/min (>60); GLUCOSE 78 mg/dl (70-220); POTASSIUM 3.7 mmol/L (3.5-5.1); SODIUM 139 mmol/L (135-144); TOTAL PROTEIN 6.4 g/dl (6.1-8.1)
[2019-03-28 07:50] LABS: PHOSPHORUS 5.6 mg/dl (2.5-4.9)
[2019-03-28 07:50] LABS: MAGNESIUM 1.9 mg/dl (1.7-2.5)
[2019-03-28] MEDS: INSULIN ASPART [NOVOLOG] 3 ML PEN SC ×2 (07:55→11:50)
[2019-03-28] MEDS: HEPARIN 5,000 UNIT/1 ML VIAL SC (09:43)
[2019-03-28] MEDS: SOD FERRIC GLUC COMPLX 125 MG in SOD CHLORIDE 0.9% 100 ML IVPB (12:30)
== END 2019-03-28 14:45 | disposition home or self-care (01) | DRG 291 ==
LOC: TEL 03-23 14:16 → E/R 00:34 → ICU 03:33
PROC: 02H633Z Insertion of Infusion Device into Right Atrium, Percutaneous Approach (ICD-10-PCS; principal; 2019-03-27 07:37)
PROC: 06HM33Z Insertion of Infusion Device into Right Femoral Vein, Percutaneous Approach (ICD-10-PCS; 2019-03-27 07:37)
PROC: 0JH63XZ Insertion of Tunneled Vascular Access Device into Chest Subcutaneous Tissue and Fascia, Percutaneous Approach (ICD-10-PCS; 2019-03-27 07:37)
PROC: 5A1D70Z Performance of Urinary Filtration, Intermittent, Less than 6 Hours Per Day (ICD-10-PCS; 2019-03-27 07:37)
PROC: 5A09357 Assistance with Respiratory Ventilation, Less than 24 Consecutive Hours, Continuous Positive Airway Pressure (ICD-10-PCS; 2019-03-27 07:37)
DX: I13.2 Hypertensive heart and chronic kidney disease with heart failure and with stage 5 chronic kidney disease, or end stage renal disease (principal); I50.43 Acute on chronic combined systolic (congestive) and diastolic (congestive) heart failure; J96.01 Acute respiratory failure with hypoxia; N18.6 End stage renal disease; I16.1 Hypertensive emergency; N17.9 Acute kidney failure, unspecified; E11.22 Type 2 diabetes mellitus with diabetic chronic kidney disease; E87.5 Hyperkalemia; I42.9 Cardiomyopathy, unspecified; E11.21 Type 2 diabetes mellitus with diabetic nephropathy; D63.1 Anemia in chronic kidney disease; E66.9 Obesity, unspecified; Z68.33 Body mass index [BMI] 33.0-33.9, adult; Z99.2 Dependence on renal dialysis
CPT/HCPCS: 36415; 36600; 71045; 76937; 78452; 80048; 80053; 80061; 82607; 82728; 82746; 82803; 82947; 82962; 83036; 83540; 83690; 83735; 83880; 84100; 84484; 85025; 85610; 85730; 86703; 86704; 86709; 86803; 87081; 87340; 90935; 93005; 93017; 94660; 96365; 96366; 96375; 99285-25